=== PATIENT | male | born 1975 | race Caucasian/White ===

== ENCOUNTER 2021-09-18 11:09 | Emergency (ER) | payer SELFPAY ==
[~2021-09-18] VITALS: Ht 167.6 cm; Wt 63.5 kg
[2021-09-18 11:10] VITALS: BP_SYST 119
--- NOTE | 2021-09-18 11:29 | NUR ---
Patient placed onto monitor in bed 4
[2021-09-18] MEDS ORDERED: HALOPERIDOL LACTATE 5 MG/ML VIAL IM ONE (11:30)
[2021-09-18] MEDS ORDERED: BENZTROPINE MESYLATE 2 MG/ 2 ML AMP IM ONE (11:30)
[2021-09-18] MEDS ORDERED: LORazepam 2 MG/ML VIAL IM ONE (11:30)
--- NOTE | 2021-09-18 11:30 | NUR ---
Patient BIB by [facility], patient is combative on gurney and in restraints. Per EMS, mother of patient called 911 stating patient was running through streets chasing neighbors. Patient is none compliant with answering questions. Per EMS patient has Hx of meth use, patient will not confirm if he has consumed Meth at this time. Vitals in the field stable, HR 102, R16, BP 109/64, Sat 98% on RA, T 98.5 Temporal, no acute distress noted. Unable to obtain Hx from patient. Patient tugging at restraints, in coherent yelling stating, "Fuck you I will kill you". Charge nurse at side with .
--- NOTE | 2021-09-18 11:38 | NUR ---
Dr Grossman at pt bed side
--- NOTE | 2021-09-18 12:14 | NUR ---
Lunch tray offered, patient refused.
--- NOTE | 2021-09-18 12:14 | NUR ---
Patient medicated per orders from MD, patient remains combative and incoherent.
[2021-09-18 12:41] LABS: BASOPHILS # (AUTO) 0.1 K/uL (0.0-0.2); BASOPHILS % (AUTO) 1.5 % (0.0-2.0); EOSINOPHILS # (AUTO) 0.4 K/uL (0.0-0.4); EOSINOPHILS % (AUTO) 6.7 % (0.0-4.0); HEMATOCRIT 36.8 % (36-54); HEMOGLOBIN 11.8 g/dL (14.0-18.0); LYMPHOCYTES # (AUTO) 1.9 K/uL (1.0-5.5); LYMPHOCYTES % (AUTO) 33.2 % (20.5-51.5); MEAN CORPUSCULAR HEMOGLOBIN 28 pg (27-31); MEAN CORPUSCULAR HGB CONC 32 % (32-36); MEAN CORPUSCULAR VOLUME 88 fL (79.0-98.0); MONOCYTES # (AUTO) 0.4 K/uL (0.0-1.0); MONOCYTES % (AUTO) 6.8 % (1.7-9.3); NEUTROPHILS % (AUTO) 51.8 % (40.0-70.0); PLATELET COUNT (AUTO) 284 K/uL (130-430); RED BLOOD CELL COUNT(AUTO) 4.19 MIL/uL (4.2-6.2); RED CELL DISTRIBUTION WIDTH 14.6 % (9.0-15.0); WHITE BLOOD COUNT (AUTO) 5.8 K/uL (4.8-10.8)
[2021-09-18 12:55] LABS: ANION GAP 9 (5-15); CALCIUM 9.4 mg/dL (8.4-11.0); CHLORIDE 103 mmol/L (98-107); CREATININE 1.11 mg/dL (0.55-1.30); GLUCOSE 98 mg/dL (70-99); POTASSIUM 3.2 mmol/L (3.5-5.1); SODIUM SERUM 139 mmol/L (136-145); UREA NITROGEN, BLOOD 24 mg/dL (8-21)
[2021-09-18 13:15] LABS: GFR AFRICAN AMERICAN 92 mL/min (>90)
[2021-09-18 13:21] LABS: ALANINE AMINOTRANSFERASE 27 U/L (12-78); ALBUMIN 3.8 g/dL (3.4-4.8); ASPARTATE AMINOTRANSFERASE 21 U/L (10-37); TOTAL BILIRUBIN 0.4 mg/dL (0.0-1.0)
[2021-09-18 13:24] LABS: ALCOHOL, BLOOD < 3 mg/dL (<10)
[2021-09-18 13:25] LABS: ACETAMINOPHEN < 1 ug/mL (1-30)
--- NOTE | 2021-09-18 13:30 | NUR ---
Patient taken to CT scan
--- NOTE | 2021-09-18 13:40 | NUR ---
Patient returned from CT scan with primary RN at bedside.
--- NOTE | 2021-09-18 13:45 | NUR ---
Patient remains calm in NAD, patient remains medicated, vitals stable.
--- NOTE | 2021-09-18 14:00 | NUR ---
RN Rounds, patient remains stable on monitor.
--- NOTE | 2021-09-18 14:30 | NUR ---
Water offered PO, patient refused, went back to sleep. No acute distress. vitals stable.
--- NOTE | 2021-09-18 15:15 | NUR ---
Dr. Vicente at bedside
--- NOTE | 2021-09-18 15:30 | NUR ---
urinal offered, patient stated he did not need to use.
--- NOTE | 2021-09-18 16:00 | NUR ---
Patient remains calm and cooperative
--- NOTE | 2021-09-18 16:30 | NUR ---
Water offered, patient accepted and consumed approx 100ml po
--- NOTE | 2021-09-18 17:15 | NUR ---
Dinner tray offered, patient refused at this time.
--- NOTE | 2021-09-18 18:52 | NUR ---
Dinner tray offered, 2nd attempt patient accepted and is eating. Vitals remain stable.
--- NOTE | 2021-09-18 18:57 | NUR ---
Report given to NOC RN, all cares endorsed.
--- NOTE | 2021-09-18 21:52 | NUR ---
Pt resting comfortably in bed. No signs of acute distress. Breathing adequately on RA.
[2021-09-19 01:13] VITALS: BP_SYST 115
--- NOTE | 2021-09-19 01:14 | NUR ---
Patient given written and verbal discharge instructions and verbalizes understanding. ER MD Ariza discussed with patient the results and treatment provided. Patient in stable condition. ID arm band removed. Patient educated on [employer] for questions provided and answered. Meal provided upon discharge. Left ED in stable condition. Ambulated with steady gait. Offered to assist with calling someone for transportation home and pt stated, "I got it." [place]/socks provided upon discharge.
== END 2021-09-18 21:52 | disposition home or self-care (01) ==
LOC: SED 11:09
DX: F19.10 Other psychoactive substance abuse, uncomplicated (principal); Z79.899 Other long term (current) drug therapy
CPT/HCPCS: 36415; 70450; 76376; 80053; 85025; 96372; 99284; G0480; J0515; J1630; J2060; G0481; G0482